=== PATIENT | female | born 1955 | race Two or more races ===

== ENCOUNTER 2018-04-27 07:47 | Outpatient (CLI) | payer OTHER | END 2018-04-27 08:53 | disposition home or self-care (01) | LOC: RAD 07:47 → RX STUDY 08:15 → RAD 08:45 | DX: Z12.31 Encounter for screening mammogram for malignant neoplasm of breast (principal); Z87.898 Personal history of other specified conditions; N60.11 Diffuse cystic mastopathy of right breast; N60.12 Diffuse cystic mastopathy of left breast; R13.19 Other dysphagia; D25.0 Submucous leiomyoma of uterus; N95.8 Other specified menopausal and perimenopausal disorders; N94.89 Other specified conditions associated with female genital organs and menstrual cycle ==

== ENCOUNTER 2018-08-08 14:49 | Outpatient (CLI) | payer OTHER | END 2018-08-08 14:56 | disposition home or self-care (01) | LOC: RAD 14:49 | DX: I10 Essential (primary) hypertension (principal) ==

== ENCOUNTER → 2018-08-19 | Day surgery (SDC) | payer OTHER ==
[~2018-08-19] MED LIST: DIOVAN320 MG PO; GABAPENTIN400 MG PO; GLUCOTROL10 MG PO; HUMALOG MI100 UNIT/2; HUMALOG100 UNIT/1; HYDRALAZINE HCL50 MG PO; JANUVIA100 MG PO; LIVALO2 MG PO; NORVASC5 MG PO; PERCOCET 10-321 EACH PO; PROTONIX40 MG PO; SINGULAIR10 MG PO; SYNTHROID75 MCG PO; TORSEMIDE10 MG PO; TRANXENE T-TAB7.5 MG PO; TRESIBA FL100 UNIT/1; ZANTAC300 MG PO; ZYRTEC10 M2 PO
== END | disposition home or self-care (01) ==
LOC: CIR.AMB 08-12 07:00
DX: D24.2 Benign neoplasm of left breast (principal)